=== PATIENT | female | born 1975 | race Hispanic/Latino ===

== ENCOUNTER 2018-04-11 10:09 | Emergency (ER) | payer OTHER ==
[2018-04-11 11:26] LABS: BASO % 0.2 % (0.0-1.0); EOS % 0.1 % (0.0-3.0); HEMATOCRIT 39.5 % (36.0-47.0); IMMATURE GRANULOCYTE % 0.7 % (0-3.0); LYMPH # 1.3 10^3/uL (1.5-4.5); LYMPH % 7.6 % (24.0-44.0); MEAN CORPUSCULAR HEMOGLOBIN 32.7 pg (27.0-33.0); MEAN CORPUSCULAR HGB CONC 35.4 g/dl (32.0-36.5); MEAN CORPUSCULAR VOLUME 92.3 fl (80.0-96.0); MONO # 0.8 10^3/uL (0.0-0.8); MONO % 4.8 % (0.0-5.0); NEUTROPHILS # 15.2 10^3/uL (1.8-7.7); NEUTROPHILS % 86.6 % (36.0-66.0); PLATELET COUNT, AUTOMATED 287 10^3/uL (150-450); RED BLOOD COUNT 4.28 10^6/uL (4.00-5.40); RED CELL DISTRIBUTION WIDTH 12.5 % (11.5-14.5); WHITE BLOOD COUNT 17.5 10^3/uL (4.0-10.0)
[2018-04-11 11:50] LABS: ALBUMIN/GLOBULIN RATIO 0.91 (1.00-1.93); ALKALINE PHOSPHATASE 73 U/L (45-117); ALT/SGPT 26 U/L (12-78); ANION GAP 10 MEQ/L (8-16); AST/SGOT 14 U/L (7-37); BILIRUBIN,DIRECT 0.2 MG/DL (0.0-0.2); BILIRUBIN,TOTAL 0.7 MG/DL (0.2-1.0); BLOOD UREA NITROGEN 7 MG/DL (7-18); CALCIUM LEVEL 8.8 MG/DL (8.5-10.1); CARBON DIOXIDE LEVEL 25 MEQ/L (21-32); CHLORIDE LEVEL 105 MEQ/L (98-107); CREATININE FOR GFR 0.61 MG/DL (0.55-1.30); GLOMERULAR FILTRATION RATE > 60.0 (>58); GLUCOSE, FASTING 92 MG/DL (70-100); LIPASE 88 U/L (73-393); POTASSIUM SERUM 3.9 MEQ/L (3.5-5.1); SODIUM LEVEL 140 MEQ/L (136-145); TOTAL PROTEIN 8.4 GM/DL (6.4-8.2)
[2018-04-11 12:22] LABS: CONTROL LINE HCG INT CTR LINE PRESENT; HCG, SERUM QUALITATIVE NEGATIVE (NEGATIVE)
[2018-04-11] MEDS: ONDANSETRON 4MG/2ML VIAL (J2405) IV (12:24)
[2018-04-11] MEDS: NS 1,000 ML IV (12:24)
[2018-04-11] MEDS: KETOROLAC 30 MG/ML VIAL (J1885) IV (12:25)
[2018-04-11] MEDS ORDERED: ISOVUE-370 76% 100ML VIAL (Q9967) As Ordered (12:26)
[2018-04-11] MEDS: GASTROGRAFIN SOLUTION 30ML PO ×2 (12:36→13:13)
[2018-04-11] MEDS: AUGMENTIN 875 MG TAB PO (15:00)
== END 2018-04-11 15:11 | disposition home or self-care (01) ==
LOC: M ED 10:09
DX: K57.32 Diverticulitis of large intestine without perforation or abscess without bleeding (principal); I10 Essential (primary) hypertension; Z79.899 Other long term (current) drug therapy
CPT/HCPCS: Q9963

== ENCOUNTER → 2018-05-10 | Outpatient (CLI) | payer OTHER | LOC: M RAD 13:21 | DX: Z12.31 Encounter for screening mammogram for malignant neoplasm of breast (principal); N60.31 Fibrosclerosis of right breast; N60.32 Fibrosclerosis of left breast | CPT/HCPCS: 77067 ==

== ENCOUNTER → 2019-02-18 | Outpatient (REF) | payer OTHER ==
[~2019-02-18] MED LIST: AUGM875T28 PO; FLAG500T PO; HYDR12.55 PO; ZOFR4TAB14 PO
== END ==
LOC: M SFHCLERA 13:09
PROVIDERS: ATTEND Nurse Practitioner Family
DX: J02.9 Acute pharyngitis, unspecified (principal)

== ENCOUNTER 2020-07-07 10:23 | Day surgery (SDC) | payer OTHER ==
[~2020-07-07] VITALS: Ht 162.6 cm; Wt 64.9 kg
[~2020-07-07 10:23] MED LIST changes: +NS 1,000 ML IV ONE; +PANT40TA29 PO
[2020-07-07] MEDS ORDERED: propofoL 200 MG/20 ML VIAL As Ordered ONE (12:28)
[2020-07-07] MEDS ORDERED: LIDOCAINE 2% 100MG/5ML SDV (FOR ANES.) As Ordered ONE (12:28)
--- NOTE | 2020-07-07 12:35 | ROOR ---
Patient Name: Rizwana Rowland Procedure Date: 07/07/2020 12:17 PM Date of : 1975 Age: 45 Room: [facility] Gender: Female Note Status: Finalized Procedure: Upper Endoscopy + Biopsies Indications: Heartburn, Chest pain (non cardiac) Providers: John Bergeron MD Referring MD: ANYA JOYNER MD Requesting Provider: Medicines: Monitored Anesthesia Care Complications: No immediate complications. Procedure: Pre-Anesthesia Assessment: - The heart rate, respiratory rate, oxygen saturations, blood pressure, adequacy of pulmonary ventilation, and response to care were monitored throughout the procedure. The Endoscope was introduced through the mouth, and advanced to the second part of duodenum. The upper GI endoscopy was accomplished without difficulty. The patient tolerated the procedure well. Findings: The Z-line was regular and was found 38 cm from the incisors. Multiple biopsies were obtained with cold forceps for evaluation to rule out Zelaya's Esophagus randomly at the gastroesophageal junction. A small hiatal hernia was present. Multiple small pedunculated and sessile fundic gland polyps with no stigmata of recent bleeding were found in the stomach. The exam was otherwise without abnormality. Impression: - Z-line regular, 38 cm from the incisors. - Small hiatal hernia. - Multiple fundic gland polyps. - The examination was otherwise normal. - Multiple biopsies were obtained at the gastroesophageal junction. Recommendation: - Patient has a contact number available for emergencies. The signs and symptoms of potential delayed complications were discussed with the patient. Return to normal activities tomorrow. Written discharge instructions were provided to the patient. - High fiber diet. - Discharge patient to home. - Follow an antireflux regimen. - Continue present medications. - Await pathology results. - Telephone GI clinic for pathology results in 1 week. - Return to referring physician. - The findings and recommendations were discussed with the patient. Procedure Code(s): --- Professional --- 77288, Esophagogastroduodenoscopy, flexible, transoral; with biopsy, single or multiple Diagnosis Code(s): --- Professional --- K44.9, Diaphragmatic hernia without obstruction or gangrene K31.7, Polyp of stomach and duodenum R12, Heartburn R07.89, Other chest pain CPT copyright 2019 [employer]. All rights reserved. The codes documented in this report are preliminary and upon specification consultant review may be revised to meet current compliance requirements. John Bergeron MD John Bergeron MD 07/07/2020 12:34:37 PM Electronically signed by John Bergeron MD Number of Addenda: 0 Note Initiated On: 07/07/2020 12:17 PM Estimated Blood Loss: Estimated blood loss: none.
[2020-07-07 13:10] VITALS: BP 143/88
== END 2020-07-07 13:21 | disposition home or self-care (01) ==
LOC: M OPP 10:23
PROVIDERS: ATTEND Internal Medicine Gastroenterology
DX: K44.9 Diaphragmatic hernia without obstruction or gangrene (principal); K31.7 Polyp of stomach and duodenum; R12 Heartburn; R07.89 Other chest pain; K21.9 Gastro-esophageal reflux disease without esophagitis; Z79.899 Other long term (current) drug therapy; Z86.79 Personal history of other diseases of the circulatory system

== ENCOUNTER → 2020-11-03 | Outpatient (CLI) | payer OTHER ==
[~2020-11-03] MED LIST changes: -NS 1,000 ML IV ONE
--- NOTE | 2020-11-03 09:03 | PFTRPT ---
Height: 64.00 Inches Weight: 142.00 Lbs BSA: 1.69 Diagnosis: R07.9 DATE: 11/03/2020 ORDERING PHYSICIAN: Piero Blackmon, Pre and post bronchodilator studies have excellent technical quality. Forced vital capacity is normal. FEV1 is in proportion. Obstructive index is therefore normal. Expiratory limit of the flow-volume loop is normal. No significant bronchodilator response is identified. Total lung capacity is normal. Residual volume is in proportion. Diffusing capacity is normal. No hemoglobin available for correction. Airway resistance and conductance are normal. IMPRESSION: Essentially normal study. MTDD
== END ==
LOC: M CARPUL 08:31
PROVIDERS: ATTEND Family Medicine
DX: R07.9 Chest pain, unspecified (principal)

== ENCOUNTER → 2020-11-17 | Outpatient (CLI) | payer OTHER ==
[~2020-11-17] MED LIST changes: +METHACHOLINE KIT (J7674) INH ONE
--- NOTE | 2020-11-17 09:48 | PFTRPT ---
Height: 64.00 Inches Weight: 142.00 Lbs BSA: 1.69 Diagnosis: SOB DATE: 11/17/2020 ORDERED BY: Piero Blackmon DO QUALITY: Study of excellent technical quality. PROCEDURE: Under protocol, methacholine was administered. Even after a maximal dose of 25 mg or 188.875 CDUs, no provocation dose ever achieved. IMPRESSION: Negative methacholine challenge study. MTDD
== END ==
LOC: M CARPUL 09:01
PROVIDERS: ATTEND Family Medicine
DX: R07.9 Chest pain, unspecified (principal)
CPT/HCPCS: 94070; J7674